=== PATIENT | female | born 1985 | race Caucasian/White ===

== ENCOUNTER 2024-03-16 19:07 | Emergency (ER) | payer BC ==
[~2024-03-16] VITALS: Ht 165.1 cm; Wt 170.0 kg
[2024-03-16] MEDS: levETIRAcetam INJection 1,500 MG in D5W 100 ML IV ONE (20:15)
[2024-03-16] MEDS: IBUPROFEN 600MG TAB PO ONE (20:16)
[2024-03-16 20:23] LABS: BASO # 0.1 10^3/uL (0.0-0.2); BASO % 0.3 % (0.0-1.0); EOS # 0.1 10^3/uL (0.0-0.5); EOS % 0.5 % (0.0-3.0); HEMOGLOBIN 13.3 g/dl (12.0-15.5); LYMPH # 1.6 10^3/uL (1.5-5.0); LYMPH % 10.7 % (24.0-44.0); MEAN CORPUSCULAR HEMOGLOBIN 27.3 pg (27.0-33.0); MEAN CORPUSCULAR HGB CONC 32.4 g/dl (32.0-36.5); MONO # 1.4 10^3/uL (0.0-0.8); MONO % 9.7 % (2.0-8.0); NEUTROPHILS # 11.3 10^3/uL (1.5-8.5); NEUTROPHILS % 78.3 % (36.0-66.0); PLATELET COUNT, AUTOMATED 299 10^3/uL (150-450); RED BLOOD COUNT 4.88 10^6/uL (4.00-5.40); WHITE BLOOD COUNT 14.5 10^3/uL (4.0-10.0)
[2024-03-16] MEDS: ACETAMINOPHEN *IV* 1,000 MG in IV 1 EA IV ONE (20:32)
[2024-03-16 21:06] LABS: ALBUMIN 2.9 G/DL (3.2-5.2); ALKALINE PHOSPHATASE 98 U/L (35-104); ALT/SGPT 16 U/L (7.0-40); AST/SGOT 15 U/L (<34); BILIRUBIN,TOTAL 0.4 MG/DL (0.3-1.2); BLOOD UREA NITROGEN 13 MG/DL (9-23); CALCIUM LEVEL 8.8 MG/DL (8.5-10.1); CARBON DIOXIDE LEVEL 27 MMOL/L (20-31); CHLORIDE LEVEL 105 MMOL/L (98-107); CREATININE FOR GFR 1.01 MG/DL (0.55-1.30); GLOMERULAR FILTRATION RATE > 60.0 (>60); GLUCOSE, FASTING 141 MG/DL (60-100); POTASSIUM SERUM 4.6 MMOL/L (3.5-5.1); SODIUM LEVEL 138 MMOL/L (136-145); TOTAL PROTEIN 6.8 G/DL (5.7-8.2)
[2024-03-16 21:19] LABS: HCG, SERUM QUALITATIVE NEGATIVE (NEGATIVE)
[2024-03-16] MEDS: GABAPENTIN 400MG CAP PO ONE (21:48)
[2024-03-16 23:33] VITALS: BP 136/71; TEMP 100.1; O2SAT 98
== END 2024-03-16 23:55 | disposition left against medical advice (07) ==
LOC: M ED 19:07
DX: R50.9 Fever, unspecified (principal); G40.909 Epilepsy, unspecified, not intractable, without status epilepticus; F17.290 Nicotine dependence, other tobacco product, uncomplicated; Z88.2 Allergy status to sulfonamides; Z88.8 Allergy status to other drugs, medicaments and biological substances; Z53.9 Procedure and treatment not carried out, unspecified reason
CPT/HCPCS: 70450; 71045; 80053; 80177; 81001; 83605; 84145; 84703; 85025; 87040; 87086; 87486; 87581; 87633; 87798; 96365; 96366; 99284; J0131; J1953